=== PATIENT | male | born 1975 | race Caucasian/White ===

== ENCOUNTER → 2017-02-11 | Day surgery (SDC) | payer OTHER, MEDICAID ==
[~2017-02-11] MED LIST: BUPIVACAINE/EPINEPHRINE 0.25% 50 ML VIAL ONE; BUPIVACAINE/EPINEPHRINE 0.5% 50 ML VIAL ONE; HYDR-3580 PO; LACTATED RINGER'S 1000 ML INJ 1,000 ML ONE; MIDAZOLAM HCL 2 MG/2 ML VIAL ONE; MORPHINE SULFATE 4 MG/ML INJ ONE; PROPOFOL 200 MG/20 ML AMP IV ONE; ceFAZolin INJ 1,000 MG VIAL ONE; hydrALAZINE HCL 20 MG/ML VIAL IV ONE
--- NOTE | 2017-02-13 14:05 | MP ---
cc: REE JACOBS M.D. 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 OPERATION: Right knee arthroscopic partial medial meniscectomy. ANESTHESIA: General. SURGEON: Ree Jacobs MD. ESTIMATED BLOOD LOSS: Minimal. SPECIMEN Fragments discarded. COMPLICATIONS None known. INDICATION Parveen Love is 41-year-old male with persistent right knee pain. MRI reveals posterior horn root tear of the medial meniscus as well some chondromalacia within the medial compartment of the high and patellofemoral joint. Risks, benefits thoroughly discussed in detail informed consent was obtained. PROCEDURE The patient brought to the operating room is placed under general anesthetic. The right lower extremities prepped and draped in usual sterile fashion. IV antibiotics given. Time-out is completed. Marcaine injected by inferolateral portal blunt trocar used to use the cannula knee insufflated with saline. The patellofemoral joint showed chondromalacia centrally a region 101 cm lateral compartment appeared normal notch showed normal ACL medial compartment showed chondromalacia weightbearing portion medial femoral condyle and unstable tear of the root attachment site of the medial meniscus arthroscopic photographs taken. We proceeded with placement of our medial portal and performing a gentle chondroplasty unstable chondromalacia medial femoral condyle proceed with arthroscopic partial medial meniscectomy using combination of basket forceps and arthroscopic shaver switched over switching stick to help smooth the transition from the body of the posterior horn photographed from this angle as well and then switched back over switching stick gentle chondroplasty patellofemoral joint. Repeat diagnostic arthroscopy confirmed no loose bodies arthroscopic equipment was removed. Marcaine injected. Steri-Strips applied. Sterile dressing applied. The patient was awoken return recovery room in stable condition. MD NOLAN Spencer/cristino /12:22 PM /1:55 PM
== END | disposition home or self-care (01) ==
LOC: ESDC 09:27
PROVIDERS: ATTEND Orthopaedic Surgery Sports Medicine
DX: S83.241A Other tear of medial meniscus, current injury, right knee, initial encounter (principal); M94.261 Chondromalacia, right knee
CPT/HCPCS: 01400; 29881; J0360; J0690; J2250; J2270; J3010; J7120